=== PATIENT | female | born 1985 | race Caucasian/White ===

== ENCOUNTER → 2016-09-26 | Outpatient (CLI) | payer BC, MEDICAID ==
[~2016-09-26] MED LIST: FLC1T PO; PREN1TAB39 PO
[2016-09-26 12:10] LABS: PROTEIN/CREATININE RATIO 0.24
== END ==
LOC: LABNPT 11:15
PROVIDERS: ATTEND Obstetrics & Gynecology
DX: O28.8 Other abnormal findings on antenatal screening of mother (principal)
CPT/HCPCS: 82570; 84156

== ENCOUNTER 2016-10-13 11:54 | Outpatient (CLI) | payer BC, MEDICAID ==
[~2016-10-13] VITALS: Ht 172.7 cm; Wt 79.4 kg
[2016-10-13 12:03] VITALS: BP 119/83
== END 2016-10-13 12:37 | disposition home or self-care (01) ==
LOC: PREOP 11:54
PROVIDERS: ATTEND Obstetrics & Gynecology
DX: Z01.818 Encounter for other preprocedural examination (principal); Z11.2 Encounter for screening for other bacterial diseases; O34.211 Maternal care for low transverse scar from previous cesarean delivery
CPT/HCPCS: 87081

== ENCOUNTER 2016-10-19 12:00 | Inpatient (IN) | payer BC, MEDICAID ==
[~2016-10-19] VITALS: Ht 172.7 cm; Wt 79.8 kg
--- OUTSIDE RECORDS SUMMARY | 2016-10-20 10:14 | XMS REPORT | Continuity of Care Document ---
Author Author [facility] Address Unknown Phone Unavailable Allergies Medications Problems Procedures Results Encounters ACCT No. Visit Date/Time Discharge Status Pt. Type Provider Facility Loc./Unit Complaint [id number] 11/24/2014 22:35:03 11/24/2014 23: 59:59 CLS Outpatient Hayley Mendez [id number] 11/05/2013 12:35:14 11/05/2013 23: 59:59 CLS Outpatient Hayley Mendez [id number] 10/31/2013 14:53:55 10/31/2013 23: 59:59 CLS Outpatient AndreaHayley [id number] 10/09/2013 10:43:11 10/09/2013 23: 59:59 CLS Outpatient Hayley Mendez [id number] 05/01/2013 14:45:54 05/01/2013 23: 59:59 CLS Outpatient AndreaHayley [id number] 01/05/2016 15:38:39 ACT Outpatient Gerald Mccormick [id number] 06/19/2015 10:26:57 ACT Outpatient Alejandro Harley
--- OUTSIDE RECORDS SUMMARY | 2016-10-20 10:14 | XMS REPORT ---
Author Author Gerald Mccormick [facility] Address [address] [place], [place] [id number] Care Team Providers Care As400 Developer Name Role Phone Gerald Mccormick PCP Unavailable Allergies and Adverse Reactions Name Reaction Notes NO KNOWN DRUG ALLERGIES Plan of Treatment Planned Activity Comments Planned Date Planned Time Plan/Goal FREE ASSAY (FT-3) 01/05/2016 12:00 AM COMPLETE CBC W/AUTO DIFF WBC 05/01/2013 12:00 AM COMPREHEN METABOLIC PANEL 05/01/2013 12:00 AM SMEAR WET MOUNT SALINE/INK 11/24/2014 12:00 AM Medications Active Name Start Date Estimated Completion Date SIG Comments Daily [phone] mg-mcg-mg oral combo pack triamcinolone acetonide 0.1 % topical cream 10/09/2013 apply a thin layer to the affected area(s) by topical route 2 times per day Name Start Date Expiration Date SIG Comments Cipro 500 mg oral tablet 10/11/2012 10/18/2012 take 1 tablet (500 mg) by oral route every 12 hours for 7 days Zithromax Z-Sanjay 250 mg oral tablet 10/09/2013 10/14/2013 take 2 tablets (500 mg) by oral route once daily for 1 day then 1 tablet (250 mg) by oral route once daily for 4 days azithromycin 250 mg oral tablet 06/19/2015 06/24/2015 take 2 tablets (500 mg) by oral route once daily for 1 day then 1 tablet (250 mg) by oral route once daily for 4 days Problem List Description Status Onset *No known medical problems Active Vital Signs Date Time BP-Sys(mm[Hg] BP-Lydia(mm[Hg]) HR(bpm) RR(rpm) Temp WT HT HC BMI BSA BMI Percentile O2 Sat(%) 01/05/2016 3:07:00 PM 116 mmHg 72 mmHg 72 bpm 18 rpm 98.2 F 146.2 lbs 68 in 22.23 kg/m2 1.78 m2 98 % 06/19/2015 9:32:00 AM 100 mmHg 70 mmHg 74 bpm 16 rpm 97.8 F 148 lbs 68 in 22.5031 kg/m 1.7947 m 98 % 11/24/2014 3:43:00 PM 125 mmHg 68 mmHg 73 bpm 16 rpm 97.5 F 148 lbs 68 in 22.50 kg/m2 1.79 m2 97 % 11/05/2013 11:38:00 AM 122 mmHg 60 mmHg 57 bpm 18 rpm 96 F 143.5 lbs 68 in 21.8189 kg/m 1.7672 m 100 % 10/31/2013 1:54:00 PM 114 mmHg 70 mmHg 70 bpm 18 rpm 97.5 F 143 lbs 68 in 21.74 kg/m2 1.76 m2 98 % 10/09/2013 9:52:00 AM 124 mmHg 66 mmHg 75 bpm 18 rpm 97.4 F 145.125 lbs 68 in 22.066 kg/m 1.7772 m 98 % 05/01/2013 2:02:00 PM 118 mmHg 60 mmHg 62 bpm 18 rpm 97.6 F 142 lbs 68 in 21.59 kg/m2 1.76 m2 99 % 10/11/2012 9:04:00 AM 126 mmHg 64 mmHg 66 bpm 18 rpm 97.3 F 143.125 lbs 68 in 21.7619 kg/m 1.7649 m Social History Name Description Comments Alcohol Use - Occasional Tobacco Never smoker Children 2 lives at home lives with children History of Procedures Date Ordered Description Order Status 01/05/2016 12:00 AM METABOLIC PANEL TOTAL CA Returned 01/05/2016 12:00 AM COMPLETE CBC W/AUTO DIFF WBC Returned 01/05/2016 12:00 AM ASSAY THYROID STIM HORMONE Returned 01/05/2016 12:00 AM ASSAY OF TOTAL THYROXINE Returned 10/11/2012 12:00 AM URINE CULTURE/COLONY COUNT Returned 10/11/2012 12:00 AM URINALYSIS AUTO W/O SCOPE Reviewed 05/01/2013 12:00 AM ASSAY THYROID STIM HORMONE Returned 10/09/2013 12:00 AM THER/PROPH/DIAG INJ SC/IM Reviewed 10/09/2013 12:00 AM Decadron, Per [address] [facility]# [id number] Reviewed 10/09/2013 12:00 AM Depo-Medrol 40mg Reviewed 11/24/2014 12:00 AM TISSUE EXAM FOR FUNGI Returned Results Summary Data and Description Results 05/01/2013 2:52 PM WBC 6.6 RBC 4.80 HGB 14.30 g/dLHCT 41.50 %MCV 87.0 fLMCH 29.80 pgMCHC 34.50 g/dLRDW CV 12.60 %MPV 9.50 fLPLT 335 %NEUT 58.20 %%LYMP 31.50 %%MONO 4.40 %%EOS 4.80 %%BASO 1.10 %#NEUT 3.84 #LYMP 2.08 #MONO 0.29 #EOS 0.32 #BASO 0.07 GLUCOSE 97.0 mg/dLSODIUM 141.0 mmol/LPOTASSIUM 4.0 mmol/ LCHLORIDE 103.0 mmol/LCO2 27.0 mmol/LBUN 10.0 mg/dLCREATININE 0.80 mg/dLSGOT/ AST 23.0 IU/LSGPT/ALT 18.0 IU/LALK PHOS 56.0 IU/LTOTAL PROTEIN 7.90 g/dLALBUMIN 4.40 g/dLTOTAL BILI 0.90 mg/dLCALCIUM 9.90 mg/dLeGFR >60 mL/min/1.73 m2TSH 1.470 uIU/mL 11/24/2014 4:44 PM WET PREP NO TRICH SEEN CLUE CELLS NONE SEEN 01/05/2016 3:55 PM GLUCOSE 103.0 mg/dLSODIUM 141.0 mmol/LPOTASSIUM 4.10 mmol/ LCHLORIDE 105.0 mmol/LCO2 29.0 mmol/LBUN 15.0 mg/dLCREATININE 0.80 mg/dLCALCIUM 9.40 mg/dLeGFR >60 mL/min/1.73mT4 5.30 ug/dLTSH 2.50 uIU/mLWBC 6.5 RBC 4.56 HGB 13.70 g/dLHCT 40.70 %MCV 89.0 fLMCH 30.0 pgMCHC 33.70 g/dLRDW CV 11.90 %MPV 9.30 fLPLT 291 %NEUT 64.50 %%LYMP 24.80 %%MONO 6.10 %%EOS 3.50 %%BASO 0.90 %# NEUT 4.22 #LYMP 1.62 #MONO 0.40 #EOS 0.23 #BASO 0.06 History Of Immunizations Not available. History of Past Illness Name Date of Onset Comments *No known medical problems Dysuria Oct 11 2012 9:06AM Fatigue May 01 2013 2:04PM Sinusitis, Acute Oct 09 2013 9:54AM Dermatitis Oct 09 2013 9:54AM Mole of skin Oct 31 2013 1:58PM Mole of skin Nov 05 2013 11:39AM Mole of skin Nov 05 2013 12:07PM Vaginal discharge Nov 24 2014 3:48PM Pharyngitis Jun 19 2015 9:33AM Goiter Jan 05 2016 3:16PM Fatigue Jan 05 2016 3:16PM Payers Insurance Name Company Name Plan Name Plan Number Policy Number Policy Group Number Start Date [id number] Wednesday, 2014 [employer] & Life [facility] [id number] N/A History of Encounters Visit Date Visit Type Provider 01/05/2016 Office visit Gerald Mccormick MD 06/19/2015 Office visit Alejandro Harley APRN 11/24/2014 Office visit Hayley Mendez APRN 11/05/2013 Procedures Hayley Mendez APRN 10/31/2013 Office visit Hayley Mendez APRN 10/09/2013 Office visit Hayley Mendez APRN 05/01/2013 Office visit Hayley Mendez APRN 10/11/2012 Office visit Hayley Mendez APRN
--- OUTSIDE RECORDS SUMMARY | 2016-10-20 10:14 | XMS REPORT ---
Author Author Gerald Mccormick [facility] Address [address] [place], [place] [id number] Care Team Providers Care Senior Manager Creative Services Name Role Phone Gerald Mccormick PCP Unavailable [...] 10/09/2013 12:00 AM Decadron, Per 1 Mg [facility]# [id number] Reviewed 10/09/2013 12:00 AM Depo-Medrol 40mg Reviewed [...] Number Policy Group Number Start Date [id number] Wednesday, 2014 [employer] & Life [facility] Life [id number] N/A History of Encounters Visit Date Visit Type Provider 01/05/2016 Office visit Gerald Mccormcik MD 06/19/2015 Office visit Alejandro Harley APRN 11/24/2014 Office visit Hayley Mendez APRN 11/05/2013 Procedures Hayley Mendez APRN 10/31/2013 Office visit Hayley Mendez APRN 10/09/2013 Office visit Hayley Mendez APRN 05/01/2013 Office visit Hayley Mendez APRN 10/11/2012 Office visit Hayley Mendez APRN
--- OUTSIDE RECORDS SUMMARY | 2016-10-20 10:14 | XMS REPORT ---
Author Author Gerald Mccormick [facility] Address [address] [place], [place] [id number] Care Team Providers Care Bridge Club Manager Name Role Phone Gerald Mccormick PCP Unavailable Allergies and Adverse Reactions Name Reaction Notes NO KNOWN DRUG ALLERGIES Plan of Treatment Planned Activity Comments Planned Date Planned Time Plan/Goal ASSAY THYROID STIM HORMONE 01/08/2016 12:00 AM ASSAY OF FREE THYROXINE 01/08/2016 12:00 AM FREE ASSAY (FT-3) 01/08/2016 12:00 AM COMPLETE CBC W/AUTO DIFF WBC [...] 12:00 AM ASSAY OF TOTAL THYROXINE Returned 01/05/2016 12:00 AM FREE ASSAY (FT-3) Returned 10/11/2012 12:00 AM URINE CULTURE/COLONY COUNT Returned 10/11/2012 12:00 AM URINALYSIS AUTO W/O SCOPE Reviewed 05/01/2013 12:00 AM ASSAY THYROID STIM HORMONE Returned 10/09/2013 12:00 AM THER/PROPH/DIAG INJ SC/IM Reviewed 10/09/2013 12:00 AM Decadron, Per [address] [facility]# [id number] Reviewed 10/09/2013 12:00 AM Depo-Medrol 40mg Reviewed [...] 1.62 #MONO 0.40 #EOS 0.23 #BASO 0.06 Triiodothyronine,Free, Serum 2.90 pg/mL History Of Immunizations Not available. History of [...] 2016 3:16PM Fatigue Jan 05 2016 3:16PM Fatigue Jan 08 2016 11:29AM Payers Insurance Name Company Name Plan Name Plan Number Policy Number Policy Group Number [facility] Date [id number] Wednesday, 2014 [facility] [employer] Life [id number] N/A History of Encounters Visit Date Visit Type Provider 01/05/2016 Office visit Gerald Mccormick MD 06/19/2015 Office visit Alejandro Harley APRN 11/24/2014 Office visit Hayley Mendez APRN 11/05/2013 Procedures Hayley Mendez APRN 10/31/2013 Office visit Hayley Mendez APRN 10/09/2013 Office visit Hayley Mendez APRN 05/01/2013 Office visit Hayley Mendez APRN 10/11/2012 Office visit Hayley Mendez APRN
[2016-10-20] MEDS ORDERED: D5 LR IV SOLUTION 1,000 ML IV SCH (10:27)
[2016-10-20] MEDS ORDERED: metroNIDAZOLE 500MG/100ML IVPB 100 ML IV NR (10:30)
[2016-10-20] MEDS ORDERED: MEASLES,MUMPS,RUBELLA 1 EA INJ SC ONE (10:30)
[2016-10-20] MEDS ORDERED: oxyCODONE/APAP 10/325MG (PERCOCET 10) TABLET PO PRN (10:30)
[2016-10-20] MEDS ORDERED: TETANUS,DIPTH,PERTUSS P/F (BOOSTRIX) 0.5 ML VIAL IM ONE (10:30)
[2016-10-20] MEDS ORDERED: MEPERIDINE (DEMEROL) INJ 100 MG/ML IM PRN (10:30)
[2016-10-20] MEDS ORDERED: ceFAZolin INJECTION 2,000 MG in NS (IVPB) 50 ML IV NR (10:30)
[2016-10-20] MEDS ORDERED: PROMETHAZINE INJ 25 MG/ML (PHENERGAN) AMP IM PRN (10:30)
--- NOTE | 2016-10-20 10:33 | Progress Note-Post Operative ---
Post-Operative Progess Note Surgeon (s)/Replanter (s) Surgeon NAT MOREL MD Replanter: RN Pre-Operative Diagnosis 39 weeks repeat Post-Operative Diagnosis same Procedure & Operative Findings Date of Procedure 10/20/16 Procedure Performed/Findings repeat Anesthesia Type spinal Estimated Blood Loss Estimated blood loss (mL): 350 cc Specimens/Packing Specimens Removed placenta / cord Packing: none NAT MOREL MD Oct 20, 2016 10:33
[2016-10-20 10:35] VITALS: BP 120/81
[2016-10-20] MEDS ORDERED: D5 LR IV SOLUTION 1,000 ML IV ONE (10:37)
--- NOTE | 2016-10-20 10:38 | History & Physical ---
History and Physical Date Seen by Provider: Oct 20, 2016 Time Seen by Provider: 11:58 31 y/o WF at 39 plus weeks gestation with prior admitted now for repeat delivery. No problems to date. No ROM, no bleeding, no SHI, no N/V,persistent contractions most of the morning. GBS culture after 35 weeks gestation was negative. Allergies - none Meds - PNV's Medical, surgical, obstetric, and social histories per the antepartum record. Heent - wnl Neck - supple - wnl Abd - gravid, NT Ext - no CCE, no homans sign VE - deferred - per nurse exam thick with a dimple Lab - Laboratory Tests 10/20/16 10:45 A/P TIUP at 39 plus weeks gestation admitted for R C/S. surgical risks recovery and potential complications and follow-up all been fully discussed all of her questions have been answered. Patient is ready to proceed TIUP - 39 weeks - repeat Allergies and Home Medications Allergies Coded Allergies: cefaclor (Verified Allergy, Mild, RASH, 10/20/16) Home Medications Aspirin 81 Mg Tablet., 81 MG PO DAILY, (Reported) Vits W-Ca,Fe,Fa(<1MG) 1 Each Tablet, 1 EACH PO DAILY, (Reported) NAT MOREL MD Oct 20, 2016 10:38 am
[2016-10-20] MEDS ORDERED: CATHETER FLUSH 10 ML SYR IV PRN ×2 (10:45→11:15)
[2016-10-20] MEDS ORDERED: LACTATED RINGERS 1,000 ML IV PRN ×2 (11:06)
[2016-10-20] MEDS ORDERED: FAMOTIDINE 20MG/2ML IV (PEPCID) IV ONE ×2 (11:15→12:00)
[2016-10-20] MEDS ORDERED: CITRIC ACID/SOB CIT (BICITRA) 30 ML UDC PO ONE ×2 (11:15→12:00)
[2016-10-20] MEDS ORDERED: METOCLOPRAMIDE INJ 10 MG/2 ML (REGLAN) IV ONE ×2 (11:15→12:00)
[2016-10-20] MEDS ORDERED: ASPI-586 PO (11:17)
[2016-10-20 11:22] LABS: BASOPHILS % (AUTO) 0 % (0-10); EOSINOPHILS # (AUTO) 0.1 10^3/uL (0.0-0.3); EOSINOPHILS % (AUTO) 1 % (0-10); LYMPHOCYTES # (AUTO) 1.3 X 10^3 (1.0-4.0); LYMPHOCYTES % (AUTO) 14 % (12-44); MEAN CORPUSCULAR HEMOGLOBIN 29 PG (25-34); MEAN CORPUSCULAR HGB CONC 34 G/DL (32-36); MEAN CORPUSCULAR VOLUME 87 FL (80-99); MEAN PLATELET VOLUME 10.1 FL (7.4-10.4); MONOCYTES # (AUTO) 0.5 X 10^3 (0.0-1.0); MONOCYTES % (AUTO) 6 % (0-12); NEUTROPHILS # (AUTO) 7.4 X 10^3 (1.8-7.8); NEUTROPHILS % (AUTO) 79 % (42-75); PLATELET COUNT 293 10^3/uL (130-400); RED BLOOD COUNT 3.95 10^6/uL (4.35-5.85); RED CELL DISTRIBUTION WIDTH 12.4 % (10.0-14.5); WHITE BLOOD COUNT 9.4 10^3/uL (4.3-11.0)
[2016-10-20] MEDS ORDERED: ceFAZolin 2 GM/50 ML NS 50 ML ONE (11:27)
[2016-10-20] MEDS ORDERED: LACTATED RINGERS 1,000 ML IV SCH (11:48)
[2016-10-20] MEDS ORDERED: ONDANSETRON 4 MG/2 ML (SDV) Z0FRAN ONE (11:49)
[2016-10-20] MEDS ORDERED: DEXAMETHASONE PF 10 MG/ML (DECADRON) VIAL ONE (11:49)
[2016-10-20] MEDS ORDERED: OXYTOCIN/NORMAL SALINE 1,000 ML IV ONE (11:49)
[2016-10-20] MEDS ORDERED: fentaNYL INJECTION 100 MCG/2 ML AMP ONE (11:49)
[2016-10-20] MEDS: LACTATED RINGERS 1,000 ML IV SCH ×2 (11:51→12:47)
--- NOTE | 2016-10-20 11:57 | Progress Note-Pre Operative ---
Pre-Operative Progress Note H&P Reviewed The H&P was reviewed, patient examined and no changes noted. Date Seen by Provider: Oct 20, 2016 Time Seen by Provider: 11:56 Date H&P Reviewed: Oct 20, 2016 Time H&P Reviewed: 11:56 Pre-Operative Diagnosis: 39 week with previous NTA MOREL MD Oct 20, 2016 11:57 am
[2016-10-20] MEDS: OXYTOCIN/NORMAL SALINE 500 ML IV SCH (12:24)
[2016-10-20] MEDS: KETOROLAC 30 MG/ML VIAL IVP SCH ×2 (14:14→20:02)
[2016-10-20 14:19] VITALS: BP 118/77
[2016-10-20 15:28] VITALS: BP 123/71
[2016-10-20 20:00] VITALS: BP 134/87
[2016-10-20] MEDS: DOCUSATE SODIUM 100 MG (COLACE) CAP PO SCH (20:02)
[2016-10-21] VITALS: BP 116/75
[2016-10-21] MEDS: KETOROLAC 30 MG/ML VIAL IVP SCH ×2 (02:42→08:46)
[2016-10-21 04:00] VITALS: BP 114/74
--- NOTE | 2016-10-21 07:21 | Progress Note-Standard ---
Standard Progress Note Progress Notes/Assess & Plan Date Seen by Provider: Oct 21, 2016 Time Seen by Provider: 07:20 Progress/Assessment & Plan this patient is without complaint. She is ambulating, voiding, tolerating fairly well, has good pain control. Patient denies chest pain, denies shortness of breath, denies nausea vomiting, denies headache. Vital Signs Date Time Temp Pulse Resp B/P (MAP) Pulse Ox O2 Delivery O2 Flow Rate FiO2 10/21/16 04:00 97.3 58 16 114/74 97 Room Air 10/21/16 00:00 98.0 64 16 116/75 95 Room Air 10/20/16 21:00 98 Room Air 10/20/16 20:00 98.9 53 18 134/87 98 Room Air 10/20/16 15:45 Room Air 10/20/16 15:28 97.2 71 18 123/71 98 Room Air 10/20/16 14:19 96.2 72 18 118/77 97 Room Air 10/20/16 10:35 71 18 120/81 Room Air I & O 10/21/16 07:00 Intake Total 3449 ml Output Total 3950 ml Balance -501 ml vital signs are stable. Patient is afebrile. Fundus is firm below the umbilicus and nontender. The incision is clean dry and intact. Extremities show no clubbing or cyanosis. There is no Homans sign. Assessment and plan postoperative day number 1 status post repeat doing well. Plan is for routine convalescence care today and plan on discharge home tomorrow NAT MOREL MD Oct 21, 2016 7:21 am
[2016-10-21] MEDS ORDERED: DOCU100C37 PO (07:22)
[2016-10-21] MEDS ORDERED: OXYC-465 PO (07:22)
[2016-10-21] MEDS ORDERED: IBUP-1780 PO (07:22)
--- NOTE | 2016-10-21 07:23 | Discharge Instructions ---
Discharge Instructions Discharge Medications New, Converted or Re-Newed RX: RX on Chart Patient Instructions Patient Instructions: as instructed Return to The Hospital For: as instructed Activity & Diet Discharge Diet: No Restrictions Activity as Tolerated: No Orders-Post D/C & Referrals Follow Up Appt: RTC 1 week for incision check. Call to make follow up appt. for patient in 4 weeks. Wound Care: Remove martha, apply benzoin and steri strips. Activity Per routine post instructions. Diet as tolerated Patient may shower or tub bathe as desired. Continue home meds NAT MOREL MD Oct 21, 2016 7:23 am
[2016-10-21 07:58] VITALS: BP 118/81
[2016-10-21] MEDS ORDERED: KETOROLAC 30 MG/ML VIAL ONE (08:37)
[2016-10-21] MEDS: DOCUSATE SODIUM 100 MG (COLACE) CAP PO SCH ×2 (08:46→20:12)
[2016-10-21] MEDS: IBUPROFEN 800 MG (MOTRIN) TAB PO SCH ×3 (10:26→22:05)
--- NOTE | 2016-10-21 11:58 | Anesthesia-Regional Post-Op ---
Regional Patient Condition Mental Status: Alert, Oriented x3 Circulation: Same as Pre-Op Headache: Absent Sensation: Full Recovery Motor Block: Absent Post Op Complications Complications None Follow Up Care/Instructions Patient Instructions None needed. Anesthesia/Patient Condition Patient is doing well, no complaints, stable vital signs, no apparent adverse anesthesia problems. No complications reported per nursing. ALEXANDER BATISTA CRNA Oct 21, 2016 11:58
[2016-10-21 12:00] VITALS: BP 112/67
--- NOTE | 2016-10-21 12:27 | OPERATIVE REPORT ---
PROCEDURE PHYSICIAN: NAT MOERL DATE OF PROCEDURE: 10/20/2016 DATE OF DICTATION: 10/20/2016 PREOPERATIVE DIAGNOSIS: Term at 39-1/7 weeks gestation with previous likely in early labor. POSTOPERATIVE DIAGNOSIS: Term at 39-1/7 weeks gestation with previous likely in early labor. OPERATIVE PROCEDURE: Repeat low transverse delivery of a viable female infant with Apgars of 8 and 9 at 1 and 5 minutes respectfully. Weight of 8 pounds and 9 ounces. time of 1223 and a cord arterial blood pH of 7.29. OPERATIVE DESCRIPTION: With the patient in the supine position, under satisfactory spinal anesthesia, she was prepped and draped usual fashion for abdominal surgery. Benitez cath was placed in the urinary bladder. A repeat Pfannenstiel incision made through the skin with scalpel at the site of the patient's previous Pfannenstiel incision. The abdomen was entered in the usual manner. Bladder retractor placed in position, clean scalpel used to make a 4 cm hysterotomy incision transversely across lower uterine segment that was extended by blunt dissection as well. Membranes were ruptured in the process releasing copious clear fluid. The incision was extended bluntly. A vigorous viable female was delivered via the uterine incision. The had Apgars of 8 and 9 at 1 and 5 minutes respectfully. Weight was 8 pounds and 9 ounces. There was a nuchal cord x1 that was released. time was 1223. Cord blood gas was 7.29. The was bulb suctioned on delivery of the head and again on completion of delivery. The umbilical cord was doubly clamped and cut and passed to nurse Rubio, the pediatric nurse in attendance for delivery. After cord bloods were obtained, the placenta delivered spontaneously Goodson. It was a battledore placenta, that was sent to pathology. The uterus was exteriorized, interior wiped clean with a wet laparotomy sponge. Uterine incision then closed with running locked suture of 2-0 Vicryl. Hemostasis was complete. The uterus was returned to the abdominal cavity. All blood, clot and debris removed from the abdominal cavity. With sponge and needle counts correct and hemostasis assured, the anterior parietal peritoneum was closed with running suture of 2-0 Vicryl. Rectus muscles were closed with that suture as well. The rectus fascia was closed with 2-0 Vicryl. Subcutaneous tissues closed with 2-0 Vicryl and the skin was stapled. Sponge and needle counts were correct at the end of procedure. Estimated blood loss for the procedure was around 350 mL. The patient tolerated the procedure well and was transferred to the recovery in stable condition. The infant had been taken stable to the full term nursery under the care of nurse Rubio. Job ID: [id number] Dictated Date: 10/20/2016 12:47:25 Franchise Development Manager Date: 10/21/2016 12:14:21 / kae
[2016-10-21] MEDS ORDERED: TETANUS,DIPTH,PERTUSS P/F (BOOSTRIX) 0.5 ML VIAL IM ONE (16:27)
[2016-10-21 17:00] VITALS: BP 128/83
[2016-10-21 20:30] VITALS: BP 124/86
[2016-10-22 02:19] VITALS: BP 124/71
[2016-10-22] MEDS: IBUPROFEN 800 MG (MOTRIN) TAB PO SCH ×2 (04:39→10:52)
--- NOTE | 2016-10-22 04:56 | Progress Note-Standard ---
Standard Progress Note Progress Notes/Assess & Plan Date Seen by Provider: Oct 22, 2016 Time Seen by Provider: 04:55 Progress/Assessment & Plan this patient is without complaint. She is ambulating, voiding, tolerating fairly well, has good pain control. Patient denies chest pain, denies shortness of breath, denies nausea vomiting, denies headache. Vital Signs Date Time Temp Pulse Resp B/P (MAP) Pulse Ox O2 Delivery O2 Flow Rate FiO2 10/21/16 04:00 97.3 58 16 114/74 97 Room Air 10/21/16 00:00 98.0 64 16 116/75 95 Room Air 10/20/16 21:00 98 Room Air 10/20/16 20:00 98.9 53 18 134/87 98 Room Air 10/20/16 15:45 Room Air 10/20/16 15:28 97.2 71 18 123/71 98 Room Air 10/20/16 14:19 96.2 72 18 118/77 97 Room Air 10/20/16 10:35 71 18 120/81 Room Air I & O 10/21/16 07:00 Intake Total 3449 ml Output Total 3950 ml Balance -501 ml vital signs are stable. Patient is afebrile. Fundus is firm below the umbilicus and nontender. The incision is clean dry and intact. Extremities show no clubbing or cyanosis. There is no Homans sign. Assessment and plan postoperative day number 1 status post repeat doing well. Plan is for routine convalescence care today and plan on discharge home tomorrow October 22, 2016 Patient without complaint. She is ablating, voiding, tolerating by mouth well, has good pain control and is requesting discharge home. Vital Signs Date Time Temp Pulse Resp B/P (MAP) Pulse Ox O2 Delivery O2 Flow Rate FiO2 10/22/16 02:19 97.4 55 18 124/71 99 Room Air 10/21/16 20:43 Room Air 10/21/16 20:30 97.2 68 20 124/86 98 Room Air 10/21/16 17:00 97.8 63 18 128/83 98 Room Air 10/21/16 12:00 97.4 67 18 112/67 96 Room Air 10/21/16 09:00 98 Room Air 10/21/16 07:58 98.2 62 17 118/81 98 Room Air I & O 7/8/17 07:00 Intake Total 1360 ml Output Total 2400 ml Balance -1040 ml vital signs are stable. Patient is afebrile. Fundus is firm below the umbilicus is nontender. The incision is clean dry and intact. Extremities show no clubbing cyanosis. There is no Homans sign. Assessment and plan day number 2 status post repeat doing well. Plan is for discharge home with follow-up in clinic. Final Diagnosis 39+ week repeat NAT MOREL MD Oct 22, 2016 4:56 am
--- NOTE | 2016-10-22 04:56 | Discharge Instructions ---
Discharge Instructions Orders-Post D/C & Referrals Follow Up Appt: RTC on Monday, October 28, 2016 at 930 a.m. for incision check. Call to make follow up appt. for patient in 4 weeks. Wound Care: Remove martha, apply benzoin and steri strips. Activity Per routine post instructions. Please call in RX to patient pharmacy. Diet as tolerated Patient may shower or tub bathe as desired. Continue home meds NAT MOREL MD Oct 22, 2016 4:56 am
[2016-10-22 08:00] VITALS: BP 109/72
[2016-10-22] MEDS ORDERED: TETANUS,DIPTH,PERTUSS P/F (BOOSTRIX) 0.5 ML VIAL IM ONE (08:18)
[2016-10-22] MEDS: DOCUSATE SODIUM 100 MG (COLACE) CAP PO SCH (08:28)
[2016-10-22 11:45] VITALS: BP 109/72
== END 2016-10-22 11:45 | disposition home or self-care (01) | DRG 766 ==
LOC: LDRP 10-20 10:00
PROVIDERS: ADMIT Obstetrics & Gynecology; ATTEND Obstetrics & Gynecology
PROC: 10D00Z1 Extraction of Products of Conception, Low, Open Approach (ICD-10-PCS; principal; 2016-10-20 12:03)
DX: O34.211 Maternal care for low transverse scar from previous cesarean delivery (principal); Z37.0 Single live birth; Z3A.39 39 weeks gestation of pregnancy
CPT/HCPCS: 36415; 85025; 86850; 86900; 86901; 94664

== ENCOUNTER 2018-10-06 09:02 | Outpatient (CLI) | payer MEDICAID ==
[~2018-10-06] VITALS: Ht 172.7 cm; Wt 77.2 kg
[~2018-10-06 09:02] MED LIST changes: +ASPI-586 PO; +DOCU100C37 PO; +IBUP-1780 PO; +OXYC-465 PO
--- NOTE | 2018-10-06 09:09 | NUR ---
EDMOND GLEZ presented to unit via AMBULATORY from ED, with c/o BLOODY DISCHARGE. EDMOND GLEZ weighed, gowned, voided, and to bed. EFHM and TOCO applied, VS taken. EDMOND GLEZ oriented to bed controls, call light, TV, heat, and A/C controls.
[2018-10-06 09:24] VITALS: BP 115/65
[2018-10-06 09:32] LABS: BILIRUBIN,URINE NEGATIVE (NEGATIVE); CLARITY,URINE SLIGHTLY CLOUDY; COLOR,URINE YELLOW; GLUCOSE, URINE (UA) NEGATIVE (NEGATIVE); KETONES,URINE NEGATIVE (NEGATIVE); LEUKOCYTE ESTERASE ,URINE 1+ (NEGATIVE); NITRITE,URINE NEGATIVE (NEGATIVE); PH,URINE 7 (5-9); PROTEIN,URINE NEGATIVE (NEGATIVE); UROBILINOGEN,URINE NORMAL (NORMAL)
[2018-10-06 09:54] LABS: WBC,URINE RARE /HPF
[2018-10-06 09:55] LABS: BACTERIA,URINE MODERATE /HPF
--- NOTE | 2018-10-06 10:05 | NUR ---
DR MOREL NOTIFIED OF PT'S ARRIVAL, GESTATION, C/O, SVE, REVIEW OF STRIP, UA RESULTS. ORDERS RECEIVED TO DISCHARGE HOME.
--- NOTE | 2018-10-06 10:15 | NUR ---
REFER TO LABOR FLOW SHEET.
--- NOTE | 2018-10-06 10:27 | NUR ---
DISCHARGE PAPERS PROVIDED AND REVIEWED WITH PT, PT VERBALIZES UNDERSTANDING AND DENIES ANY QUESTIONS AT THIS TIME. PAPER SIGNED.
--- NOTE | 2018-10-06 10:28 | NUR ---
PT DISCHARGED FROM [facility] TO [facility] VIA AMBULATORY IN STABLE CONDITION, BELONGINGS IN HAND.
--- NOTE | 2018-10-10 09:37 | Physician Query-Final Dx ---
GARTH DESAI 10/10/18 0937: Clinic Account Progress/Dx Physician Query: Please give diagnosis Need dx and weeks of gestation. Date of Service Oct 06, 2018 at 09:02 NAT MOREL MD 10/10/18 1314: Clinic Account Progress/Dx DIAGNOSIS: Diagnosis vaginal bleeding in GARTH DESAI Oct 10, 2018 09:37 NAT MOREL MD Oct 10, 2018 13:14
== END 2018-10-06 10:28 | disposition home or self-care (01) ==
LOC: WSo 09:02 → LDRP 09:02 → WSo 10:28
PROVIDERS: ATTEND Obstetrics & Gynecology
DX: O46.90 Antepartum hemorrhage, unspecified, unspecified trimester (principal)
CPT/HCPCS: 81000; 99213

== ENCOUNTER 2019-01-09 14:18 | Outpatient (CLI) | payer MEDICAID ==
[~2019-01-09] VITALS: Ht 172.7 cm; Wt 79.5 kg
[2019-01-09] MEDS ORDERED: PREN-8 PO (14:25)
== END 2019-01-09 14:27 ==
LOC: PREOP 14:18
PROVIDERS: ATTEND Obstetrics & Gynecology
DX: Z01.818 Encounter for other preprocedural examination (principal)

== ENCOUNTER 2019-01-15 10:00 | Inpatient (IN) | payer MEDICAID ==
[2019-01-15] VITALS (9 sets, daily range): BP systolic 100–136; BP diastolic 60–80
[~2019-01-15] VITALS: Ht 172.7 cm; Wt 78.6 kg
[~2019-01-15 10:00] MED LIST changes: +PREN-8 PO
--- NOTE | 2019-01-15 10:00 | NUR ---
Arrived to unit via ambulation for repeat . wt obtained and to room 315. Oriented to room, call light and surroundings. plan of care reviewed with pt and . denied questions at this time.
[2019-01-15] MEDS ORDERED: D5 LR IV SOLUTION 1,000 ML IV SCH ×2 (10:08→13:23)
[2019-01-15] MEDS ORDERED: LACTATED RINGERS 1,000 ML IV PRN ×2 (10:12)
[2019-01-15] MEDS ORDERED: CLINDAMYCIN 900 MG/50 ML IVPB 50 ML IV ONE (10:15)
[2019-01-15] MEDS ORDERED: CITRIC ACID/SOB CIT (BICITRA) 30 ML UDC PO ONE (10:15)
[2019-01-15] MEDS ORDERED: METOCLOPRAMIDE INJ 10 MG/2 ML (REGLAN) IV ONE (10:15)
[2019-01-15] MEDS ORDERED: metroNIDAZOLE 500MG/100ML IVPB 100 ML IV ONE (10:15)
[2019-01-15] MEDS ORDERED: FAMOTIDINE 20MG/2ML IV (PEPCID) IV ONE (10:15)
[2019-01-15] MEDS ORDERED: CATHETER FLUSH 10 ML SYR IV PRN (10:15)
[2019-01-15 11:09] LABS: BASOPHILS % (AUTO) 1 % (0-10); EOSINOPHILS # (AUTO) 0.1 10^3/uL (0.0-0.3); EOSINOPHILS % (AUTO) 1 % (0-10); HEMATOCRIT 33 % (35-52); HEMOGLOBIN 10.8 G/DL (11.5-16.0); LYMPHOCYTES # (AUTO) 1.4 X 10^3 (1.0-4.0); LYMPHOCYTES % (AUTO) 18 % (12-44); MEAN CORPUSCULAR HEMOGLOBIN 28 PG (25-34); MEAN CORPUSCULAR HGB CONC 33 G/DL (32-36); MEAN CORPUSCULAR VOLUME 85 FL (80-99); MEAN PLATELET VOLUME 9.9 FL (7.4-10.4); MONOCYTES # (AUTO) 0.4 X 10^3 (0.0-1.0); MONOCYTES % (AUTO) 5 % (0-12); NEUTROPHILS # (AUTO) 5.9 X 10^3 (1.8-7.8); NEUTROPHILS % (AUTO) 75 % (42-75); PLATELET COUNT 306 10^3/uL (130-400); RED CELL DISTRIBUTION WIDTH 12.7 % (10.0-14.5); WHITE BLOOD COUNT 7.9 10^3/uL (4.3-11.0)
--- NOTE | 2019-01-15 11:48 | NUR ---
REPORT FROM SCOTT LAMB
[2019-01-15] MEDS ORDERED: fentaNYL INJECTION 100 MCG/2 ML AMP ONE (11:55)
[2019-01-15] MEDS ORDERED: OXYTOCIN/NORMAL SALINE 1,000 ML IV ONE (11:58)
--- NOTE | 2019-01-15 12:05 | History & Physical ---
History and Physical Date Seen by Provider: Jan 15, 2019 Time Seen by Provider: 12:03 This patient is a 33-year-old 2 white female with an EDC of 10 819 putting her now at 39 weeks gestation. She presents for repeat steffi roth. Her has been uncomplicated. Her GBS culture was negative. She denies rupture membranes or bleeding. She is anneliese every 2-3 minutes. Allergies are to penicillin Medications are vitamins Medical social and surgical histories are per the antepartum record HEENT exam is normal Neck is supple no lymphadenopathy no thyromegaly Abdomen is gravid soft nontender nondistended Extreme show no clubbing cyanosis. There is no Homans sign. Pelvic exam is deferred Laboratory Tests 01/15/19 10:35 Assessment and plan 39 week gestation in a patient with 2 previous C-sections admitted now for repeat delivery. Surgical risk complication recovering follow-up have been fully discussed patient is ready to proceed. Allergies and Home Medications Allergies Coded Allergies: Penicillins (Verified Allergy, Unknown, Rash, 01/15/19) Home Medications Vit W-Ca,Fe,FA(<1 mg) 1 Each Tablet, 1 EACH PO DAILY, (Reported) Patient Home Medication List Home Medication List Reviewed: Yes Clinical Quality Measures DVT/VTE Risk/Contraindication: Risk Factor Score Per Nursin RFS Level Per Nursing on Admit: 1=Low/No VTE PPX NAT MOREL MD Jan 15, 2019 12:04
[2019-01-15] MEDS ORDERED: ceFAZolin 2 GM/50 ML NS 50 ML IV NR (12:15)
[2019-01-15] MEDS ORDERED: BUPIVACAINE 0.5% 30 ML (SENSORCAINE) VIAL ONE (12:48)
[2019-01-15] MEDS ORDERED: OXYTOCIN/NORMAL SALINE 500 ML IV SCH (13:23)
[2019-01-15] MEDS ORDERED: ONDANSETRON 4 MG/2 ML (SDV) Z0FRAN IVP PRN ×2 (13:30→14:15)
[2019-01-15] MEDS ORDERED: TETANUS,DIPTH,PERTUSS P/F (BOOSTRIX) 0.5 ML VIAL IM ONE (13:30)
[2019-01-15] MEDS ORDERED: MEASLES,MUMPS,RUBELLA 1 EA INJ SC ONE (13:30)
[2019-01-15] MEDS ORDERED: oxyCODONE/APAP 10/325MG (PERCOCET 10) TABLET PO PRN (13:30)
[2019-01-15] MEDS ORDERED: KETOROLAC 30 MG/ML VIAL ONE (13:34)
[2019-01-15] MEDS: KETOROLAC 30 MG/ML VIAL IVP PRN ×2 (13:35→20:12)
[2019-01-15] MEDS ORDERED: morphine INJ 10 MG/ML 1ML (SYR OR VIAL) IVP ONE (14:15)
--- NOTE | 2019-01-15 14:15 | NUR ---
PT TO ROOM 3308 BY CART FROM RECOVERY FOR CARE. EXPLAINED PLAN OF CARE, NO QUESTIONS NOTED, S/O AT SIDE, NO DISTRESS OR PAIN NOTED, INITIAL ASSESSMENT COMPLETED. WILL MONITOR.
--- NOTE | 2019-01-15 15:15 | NUR ---
VSS, FFU/2 LT LOCHIA NOTED, PTS FAMILY AT BEDSIDE, NO DISTRESS NOTED.
[2019-01-15] MEDS ORDERED: OXYC1TAB12 PO (17:04)
[2019-01-15] MEDS ORDERED: DOCU100C37 PO (17:04)
[2019-01-15] MEDS ORDERED: IBUP-1780 PO (17:04)
--- NOTE | 2019-01-15 17:05 | Discharge Instructions ---
Discharge Instructions Discharge Medications New, Converted or Re-Newed RX: RX on Chart Patient Instructions Return to The Hospital For: As directed Activity & Diet Discharge Diet: No Restrictions Activity as Tolerated: No Orders-Post D/C & Referrals Follow Up Appt: RTC 1 week for incision check. Call to make follow up appt. for patient in 4 weeks. Wound Care: Remove martha, apply benzoin and steri strips. Activity Per routine post instructions. Please call in RX to patient pharmacy. Diet as tolerated Patient may shower or tub bathe as desired. Continue home meds NAT MOREL MD Jan 15, 2019 17:05
--- NOTE | 2019-01-15 17:26 | NUR ---
PT SITTING UP IN BED EATING DINNER, S/O AT SIDE, NO DISTRESS NOTED, WILL MONITOR.
--- NOTE | 2019-01-15 17:39 | OPERATIVE REPORT ---
DATE OF SERVICE: 01/15/2019 PREOPERATIVE DIAGNOSIS: A 39-week with two previous sections. POSTOPERATIVE DIAGNOSIS: A 39-week with two previous sections. OPERATIVE PROCEDURE: Repeat low transverse delivery of a viable female infant with Apgars of 8 and 9 at 1 and 5 minutes respectively, weight of 7 pounds 14 ounces, time of 1237 and a cord blood pH of 7.35. OPERATIVE DESCRIPTION: With the patient in the supine position under satisfactory spinal anesthesia, she was prepped and draped in the usual fashion for abdominal surgery. Benitez catheter was placed in the urinary bladder. A repeat Pfannenstiel incision was made through skin with scalpel, the patient's abdomen was entered in the usual manner. Bladder retractor placed in position, clean scalpel used to make a 4 cm hysterotomy and incision transversely across the lower uterine segment, which was comprised exclusively of membranes and peritoneum for an area of approximately 2 cm vertically in the midline and 6 to 8 cm transverse. The incision was made releasing clear fluid. The incision was extended bluntly and then Kohler forceps were applied to facilitate the delivery of the female with stats as noted above. The was bulb suctioned on delivery. The umbilical cord was doubly clamped, the cord was cut and the infant passed to the pediatric nurse in attendance for delivery. Cord bloods were obtained. The placenta delivered spontaneously Goodson. It was normal with a 3-vessel cord. The uterus was exteriorized and interior wiped clean with a wet laparotomy sponge. Uterine incision closed with a running locked suture of 2-0 Vicryl. Hemostasis was complete. The uterus was returned to the abdominal cavity. All blood clot and debris removed from the abdominal cavity. Sponge and needle counts correct, hemostasis assured. The anterior parietal peritoneum was closed with running suture of 2-0 Vicryl. Rectus muscles were closed with that suture as well. The rectus fascia was closed with 2-0 Vicryl, subcutaneous tissue was closed with 2-0 Vicryl and the skin was stapled. Sponge and needle counts were correct on completion of the procedure. Estimated blood loss was around 500 mL. The patient tolerated the procedure well and was transferred to recovery room in stable condition. The had been taken stable to the full term nursery. Job ID: [id number] DocumentID: [id number] Dictated Date: 01/15/2019 13:02:26 Patient Attendant Date: 01/15/2019 17:39:00 Dictated By: NAT MOREL MD
--- NOTE | 2019-01-15 18:40 | NUR ---
IV CHANGED TO D5LR AT 125ML/HR PER PUMP. PT AMBULATED TO BR, VOIDED WITHOUT DIFFICULTY, GERMÁN-CARE COMPLETED PAD CHANGED, BACK TO BED, TOLERATED WELL, FAMILY AT BEDSIDE.
--- NOTE | 2019-01-15 20:10 | NUR ---
To pt room. Visitors present. Toradol given. will be back to do vs and assessments. no needs at this time.
--- NOTE | 2019-01-15 21:30 | NUR ---
Assessments and vs done.
--- NOTE | 2019-01-15 22:00 | NUR ---
Pt up to bathroom to void. Tolerated well. Very minimal bleeding noted. Back to bed and scd's on. No other needs at this time.
[2019-01-16 01:55] VITALS: BP 122/78
[2019-01-16] MEDS: DOCUSATE SODIUM 100 MG (COLACE) CAP PO SCH ×3 (01:55→21:38)
[2019-01-16] MEDS: KETOROLAC 30 MG/ML VIAL IVP PRN (01:55)
--- NOTE | 2019-01-16 06:00 | NUR ---
vs done. abdominal dressing removed. martha intact. incision left open to air.
[2019-01-16 06:05] VITALS: BP 125/72
--- NOTE | 2019-01-16 07:45 | Anesthesia-Regional Post-Op ---
Regional Patient Condition Mental Status: Alert, Oriented x3 Circulation: Same as Pre-Op Headache: Absent Sensation: Full Recovery Motor Block: Absent Post Op Complications Complications None Follow Up Care/Instructions Patient Instructions None needed. Anesthesia/Patient Condition Patient is doing well, no complaints, stable vital signs, no apparent adverse anesthesia problems. No complications reported per nursing. [place] home [place] [facility] [place]: ADAM Kessler CRNA Jan 16, 2019 07:45
[2019-01-16 07:50] VITALS: BP 128/84
--- NOTE | 2019-01-16 07:50 | Progress Note ---
Standard Progress Note Progress Notes/Assess & Plan Date Seen by a Provider: Jan 16, 2019 Time Seen by a Provider: 07:49 Progress/Assessment & Plan This patient is without complaint. She is ambulating, voiding, tolerating oral intake well has good pain control. Patient denies chest pain, denies shortness breath, denies nausea vomiting, and denies headache. Vital Signs Date Time Temp Pulse Resp B/P (MAP) Pulse Ox O2 Delivery O2 Flow Rate FiO2 01/16/19 06:05 37.2 71 20 125/72 (89) 95 01/16/19 01:55 36.8 71 18 122/78 (93) 97 01/15/19 20:30 36.9 68 18 127/74 (91) 97 01/15/19 16:15 36.0 69 20 112/69 (83) 100 Room Air 01/15/19 15:15 36.1 84 20 136/70 (92) 100 Room Air 01/15/19 14:15 36.0 75 20 109/69 (82) 98 Room Air 01/15/19 14:05 Room Air 0 01/15/19 14:05 36.3 18 107/76 (86) 100 Room Air 01/15/19 13:52 36.0 18 116/80 (92) 100 Room Air 01/15/19 13:52 Room Air 0 01/15/19 13:35 Room Air 0 01/15/19 13:35 36.3 18 100/63 (75) 100 Room Air 01/15/19 13:10 Room Air 0 01/15/19 13:10 36.2 16 103/60 (74) 97 Room Air 01/15/19 10:45 98 Room Air 01/15/19 10:30 73 16 108/74 (85) Room Air I & O 01/16/19 07:00 Intake Total 4850 ml Output Total 4425 ml Balance 425 ml Vital signs are stable. Patient is afebrile. Fundus is firm below the umbilicus and nontender. The surgical incision is clean dry and intact. Extremities show no clubbing cyanosis. There is no Homans sign. Assessment and plan postoperative day number 1 status post repeat doing well. Plan is routine convalescence care NAT MOREL MD Jan 16, 2019 07:50
[2019-01-16] MEDS: IBUPROFEN 800 MG (MOTRIN) TAB PO SCH ×3 (07:52→21:38)
--- NOTE | 2019-01-16 11:50 | NUR ---
Pt states increased pain - offered Oxycodone - pt refused.
[2019-01-16 12:37] VITALS: BP 138/87
--- NOTE | 2019-01-16 13:00 | NUR ---
report received from ADONIS Anton. care assumed of pt.
[2019-01-16 18:30] VITALS: BP 106/75
[2019-01-16 22:00] VITALS: BP 124/70
[2019-01-17 04:00] VITALS: BP 114/81
[2019-01-17] MEDS: IBUPROFEN 800 MG (MOTRIN) TAB PO SCH (04:31)
--- NOTE | 2019-01-17 07:53 | Progress Note ---
Standard Progress Note Progress Notes/Assess & Plan Date Seen by a Provider: Jan 17, 2019 Time Seen by a Provider: 07:52 Progress/Assessment & Plan This patient is without complaint. She is ambulating, voiding, tolerating oral intake well has good pain control. Patient denies chest pain, denies shortness breath, denies nausea vomiting, and denies headache. Vital Signs Date Time Temp Pulse Resp B/P (MAP) Pulse Ox O2 Delivery O2 Flow Rate FiO2 01/16/19 06:05 37.2 71 20 125/72 (89) 95 01/16/19 01:55 36.8 71 18 122/78 (93) 97 01/15/19 20:30 36.9 68 18 127/74 (91) 97 01/15/19 16:15 36.0 69 20 112/69 (83) 100 Room Air 01/15/19 15:15 36.1 84 20 136/70 (92) 100 Room Air 01/15/19 14:15 36.0 75 20 109/69 (82) 98 Room Air 01/15/19 14:05 Room Air 0 01/15/19 14:05 36.3 18 107/76 (86) 100 Room Air 01/15/19 13:52 36.0 18 116/80 (92) 100 Room Air 01/15/19 13:52 Room Air 0 01/15/19 13:35 Room Air 0 01/15/19 13:35 36.3 18 100/63 (75) 100 Room Air 01/15/19 13:10 Room Air 0 01/15/19 13:10 36.2 16 103/60 (74) 97 Room Air 01/15/19 10:45 98 Room Air 01/15/19 10:30 73 16 108/74 (85) Room Air I & O 01/16/19 07:00 Intake Total 4850 ml Output Total 4425 ml Balance 425 ml Vital signs are stable. Patient is afebrile. Fundus is firm below the umbilicus and nontender. The surgical incision is clean dry and intact. Extremities show no clubbing cyanosis. There is no Homans sign. Assessment and plan postoperative day number 1 status post repeat doing well. Plan is routine convalescence care January 17, 2019 Patient is without complaint. She is ambulating, voiding, tolerating oral intake well has good pain control. Patient is requesting discharge home. Vital Signs Date Time Temp Pulse Resp B/P (MAP) Pulse Ox O2 Delivery O2 Flow Rate FiO2 01/17/19 04:00 36.1 65 16 114/81 (92) 97 Room Air 01/16/19 22:00 36.2 69 18 124/70 (88) 97 Room Air 01/16/19 21:00 99 Room Air 01/16/19 18:30 37.1 66 16 106/75 (85) 97 Room Air 01/16/19 12:37 37.2 68 16 138/87 (104) 100 Room Air 01/16/19 12:36 37.2 I & O 01/17/19 07:00 Intake Total 2200 ml Output Total 2000 ml Balance 200 ml Vital signs are stable. Patient is afebrile. Abdomen is benign the surgical incision is clean dry and intact. The fundus is firm below the umbilicus and nontender. Extremities show no clubbing cyanosis. There is no Homans sign. Assessment and plan post operative day number 2 doing well. Plan is for discharge home with follow-up in clinic Final Diagnosis 39 week repeat delivery NAT MOREL MD Jan 17, 2019 07:53
[2019-01-17 09:09] VITALS: BP 109/71
[2019-01-17 10:31] VITALS: BP 109/71
--- NOTE | 2019-01-17 10:45 | NUR ---
Jan removed - Benzoin spray applied/steri strips by student nurse with assistance of this nurse. Home instructions given with pt verbalized understanding. 1130 Discharged to home - Ambulatory to exit - accompanied by student nurse and . Infant in car seat.
== END 2019-01-17 11:30 | disposition home or self-care (01) | DRG 788 ==
LOC: LDRP 10:00
PROVIDERS: ADMIT Obstetrics & Gynecology; ATTEND Obstetrics & Gynecology
PROC: 10D00Z1 Extraction of Products of Conception, Low, Open Approach (ICD-10-PCS; principal; 2019-01-15 12:00)
DX: O34.211 Maternal care for low transverse scar from previous cesarean delivery (principal); O99.824 Streptococcus B carrier state complicating childbirth; Z3A.39 39 weeks gestation of pregnancy; Z37.0 Single live birth; Z88.0 Allergy status to penicillin
CPT/HCPCS: 36415; 85025; 86850; 86900; 86901; 87081; 88307